=== PATIENT | female | born 2000 | race Caucasian/White ===

== ENCOUNTER 2024-03-04 15:25 | Emergency (ER) | payer OTHER ==
[~2024-03-04] VITALS: Ht 157.5 cm; Wt 63.5 kg
[2024-03-04 16:10] VITALS: BP 151/70; PULSE 67; RESP 15; TEMP 98.8; O2SAT 100
== END 2024-03-04 16:34 | disposition home or self-care (01) ==
LOC: MED 15:25
DX: S01.81XA Laceration without foreign body of other part of head, initial encounter (principal); W20.8XXA Other cause of strike by thrown, projected or falling object, initial encounter; Y93.89 Activity, other specified; Y92.89 Other specified places as the place of occurrence of the external cause; Y99.8 Other external cause status
CPT/HCPCS: 99282